=== PATIENT | female | born 1990 | race African-American/Black ===

== ENCOUNTER 2023-04-11 10:39 | Emergency (ER) | payer MEDICAID, OTHER ==
[~2023-04-11] VITALS: Ht 172.7 cm; Wt 100.0 kg
[2023-04-11 12:16] VITALS: BP 120/54; PULSE 78; RESP 16; TEMP 97.6; O2SAT 100
[2023-04-11] MEDS ORDERED: KETOROLAC TROMETH 60MG/2ML VIAL IM ONE (13:00)
[2023-04-11] MEDS ORDERED: HYDROcodone-ACET 5/325MG TAB PO ONE (13:00)
[2023-04-11] MEDS ORDERED: IBUP-1455 PO (13:54)
[2023-04-11] MEDS ORDERED: ACET500T58 PO (13:54)
== END 2023-04-11 14:58 | disposition home or self-care (01) ==
LOC: ER 10:39
DX: S93.402A Sprain of unspecified ligament of left ankle, initial encounter (principal); X50.1XXA Overexertion from prolonged static or awkward postures, initial encounter; Y93.89 Activity, other specified; Y92.89 Other specified places as the place of occurrence of the external cause; Y99.8 Other external cause status
CPT/HCPCS: 73610; 96372; 99283; J1885

== ENCOUNTER 2024-11-25 19:51 | Emergency (ER) | payer MEDICAID ==
[~2024-11-25 19:51] MED LIST: ACET500T58 PO; IBUP-1455 PO
== END 2024-11-25 19:58 | disposition left against medical advice (07) ==
LOC: ER 19:51
DX: Z48.00 Encounter for change or removal of nonsurgical wound dressing (principal); Z53.21 Procedure and treatment not carried out due to patient leaving prior to being seen by health care provider